=== PATIENT | female | born 1995 | race Caucasian/White ===

== ENCOUNTER 2017-02-23 14:36 | Outpatient (CLI) | payer MEDICAID ==
[~2017-02-23] VITALS: Ht 167.6 cm; Wt 106.4 kg
[2017-02-23 15:08] VITALS: BP 125/65
[2017-02-23] MEDS ORDERED: PREN1TAB69 PO (16:43)
== END 2017-02-23 17:55 | disposition home or self-care (01) ==
LOC: LDOP 14:36
PROVIDERS: ATTEND Obstetrics & Gynecology
DX: O26.893 Other specified pregnancy related conditions, third trimester (principal); R10.9 Unspecified abdominal pain; Z3A.29 29 weeks gestation of pregnancy
CPT/HCPCS: 59025; 81003; 99201; G0463

== ENCOUNTER 2017-04-30 16:36 | Inpatient (IN) | payer MEDICAID ==
[~2017-04-30] VITALS: Ht 170.2 cm; Wt 107.3 kg
[~2017-04-30 16:36] MED LIST: PREN1TAB69 PO
[2017-04-30] MEDS ORDERED: D5%-LACTATED RINGERS 1,000 ML IV SCH (17:09)
[2017-04-30] MEDS ORDERED: OXYTOCIN 30U/ 0.9% NaCL 500ML 500 ML IV ONE (17:09)
[2017-04-30] MEDS ORDERED: OXYTOCIN 30U/ 0.9% NaCL 500ML 500 ML IV PRN (17:09)
[2017-04-30] MEDS ORDERED: NEWBORN KIT ONE (17:09)
[2017-04-30] MEDS ORDERED: LABETALOL 100 MG TABLET ONE (17:14)
[2017-04-30] MEDS ORDERED: MAGNESIUM SULF. PMX 20GM/500ML 500 ML IV PRN (17:24)
[2017-04-30] MEDS ORDERED: LACTATED RINGERS 1,000 ML IV PRN (17:24)
[2017-04-30] MEDS ORDERED: MAGNESIUM SULFATE PMX 4GM/100M 100 ML IVPB ONE (17:30)
[2017-04-30] MEDS ORDERED: CALCIUM CARBONATE 500 MG TAB.CHEW PO PRN (17:30)
[2017-04-30] MEDS ORDERED: CALCIUM GLUCONATE 0.46MEQ/1ML IVPush ONE (17:30)
[2017-04-30] MEDS ORDERED: SODIUM CITRATE/CITRIC ACID 30 ML UDC PO PRN (17:30)
[2017-04-30] MEDS ORDERED: ONDANSETRON 2MG/ML, 2ML IVPush PRN (17:30)
[2017-04-30] MEDS ORDERED: LABETALOL 200 MG TABLET PO ONE (17:30)
[2017-04-30] MEDS ORDERED: FENTANYL PF 100 MCG/2ML IV PRN (17:30)
[2017-04-30] MEDS ORDERED: MISOPROSTOL 25 MCG TABLET VG PRN (17:30)
[2017-04-30] MEDS: LACTATED RINGERS 1,000 ML IV SCH (17:32)
[2017-04-30 17:39] LABS: HEMATOCRIT 40.2 % (34.6-47.8); HEMOGLOBIN 13.5 g/dL (11.7-16.4); WHITE BLOOD COUNT 11.2 x10^3/uL (4.5-13.2)
[2017-04-30 17:41] VITALS: BP 165/88
[2017-04-30 17:52] LABS: BLOOD UREA NITROGEN 8 mg/dL (7-18)
[2017-04-30 17:55] LABS: ASPARTATE AMINO TRANSFERASE 16 U/L (15-37); LACTATE DEHYDROGENASE 160 U/L (84-246)
[2017-04-30] MEDS ORDERED: MISOPROSTOL 25 MCG TABLET ONE (18:16)
[2017-04-30] MEDS ORDERED: MISOPROSTOL 200 MCG TABLET ONE (18:16)
[2017-04-30] MEDS ORDERED: OXYTOCIN 30U/ 0.9% NaCL 500ML 500 ML ONE (18:17)
[2017-04-30] MEDS ORDERED: LIDOCAINE 1%, 20ML ONE (18:19)
[2017-05-01] MEDS ORDERED: MISOPROSTOL 25 MCG TABLET ONE (02:52)
[2017-05-01] MEDS: LACTATED RINGERS 1,000 ML IV SCH ×2 (08:15→16:08)
[2017-05-02] MEDS: LACTATED RINGERS 1,000 ML IV SCH ×4 (08:52→23:25)
[2017-05-02] MEDS ORDERED: OXYTOCIN 30U/ 0.9% NaCL 500ML 500 ML IV PRN (13:00)
[2017-05-02] MEDS ORDERED: D5%-LACTATED RINGERS 1,000 ML IV SCH (21:00)
[2017-05-02] MEDS ORDERED: FENTANYL PF 100 MCG/2ML ONE ×2 (21:52→23:22)
[2017-05-02] MEDS: FENTANYL PF 100 MCG/2ML IVPush PRN ×2 (21:58→23:25)
[2017-05-03] MEDS ORDERED: FENTANYL PF 100 MCG/2ML ONE ×2 (00:30→00:35)
[2017-05-03] MEDS ORDERED: FENTANYL/BUPIV./NS/PF 250 ML EPIDCONT ONE ×2 (00:30→00:35)
[2017-05-03] MEDS ORDERED: BUPIVACAINE 0.25% ONE ×2 (00:30→00:35)
[2017-05-03] MEDS ORDERED: LIDOCAINE/PF 1.5%-EPI 1:200K, 30ML ONE (00:35)
[2017-05-03] MEDS ORDERED: FENTANYL/BUPIV./NS/PF 250 ML EPIDCONT SCH (01:02)
[2017-05-03] MEDS ORDERED: LACTATED RINGERS 1,000 ML IV SCH (01:02)
[2017-05-03] MEDS: LACTATED RINGERS 1,000 ML IV SCH (01:09)
[2017-05-03] MEDS ORDERED: EPHEDRINE 50 MG/ML, 1ML IVPush PRN (01:30)
[2017-05-03] MEDS ORDERED: ONDANSETRON 2MG/ML, 2ML IVPush PRN (01:30)
[2017-05-03] MEDS ORDERED: LACTATED RINGERS 1,000 ML IVBOLUS PRN (01:30)
[2017-05-03] MEDS: OXYTOCIN 30U/ 0.9% NaCL 500ML 500 ML IV SCH ×2 (03:29→13:29)
[2017-05-03] MEDS ORDERED: DOCUSATE 100 MG CAPSULE PO PRN (03:30)
[2017-05-03] MEDS ORDERED: ACETAMINOPHEN 325 MG TABLET PO PRN (03:30)
[2017-05-03] MEDS ORDERED: ONDANSETRON 2MG/ML, 2ML IV PRN (03:30)
[2017-05-03] MEDS ORDERED: MISOPROSTOL 200 MCG TABLET PR PRN (03:30)
[2017-05-03] MEDS ORDERED: OXYcodone/APAP 5/325MG TABLET PO PRN ×2 (03:30)
[2017-05-03] MEDS ORDERED: METOCLOPRAMIDE 5 MG/ML, 2ML IV PRN (03:30)
[2017-05-03] MEDS ORDERED: IBUPROFEN 600 MG TABLET PO PRN (03:30)
[2017-05-03 05:15] VITALS: BP 135/76
[2017-05-03 08:01] VITALS: BP 124/84
[2017-05-03] MEDS: PRENATAL VIT/IRON/FA 1 EACH TABLET PO SCH (09:00)
[2017-05-03 12:00] VITALS: BP 141/83
[2017-05-03 12:08] LABS: HEMATOCRIT 35.1 % (34.6-47.8); HEMOGLOBIN 11.8 g/dL (11.7-16.4); WHITE BLOOD COUNT 13.5 x10^3/uL (4.5-13.2)
[2017-05-03 12:20] VITALS: BP 135/88
[2017-05-03 16:10] VITALS: BP 138/86
[2017-05-03 21:03] VITALS: BP 139/81
[2017-05-04 00:35] VITALS: BP 135/88
[2017-05-04 07:40] VITALS: BP 131/79
[2017-05-04] MEDS: PRENATAL VIT/IRON/FA 1 EACH TABLET PO SCH (08:05)
[2017-05-04 20:45] VITALS: BP 138/87
[2017-05-05 07:30] VITALS: BP 131/83
[2017-05-05] MEDS: PRENATAL VIT/IRON/FA 1 EACH TABLET PO SCH (09:00)
[2017-05-05] MEDS ORDERED: IBUP-1222 PO (09:28)
[2017-05-05] MEDS ORDERED: DOCU-131 PO (09:29)
[2017-05-05] MEDS ORDERED: HYDR1TAB12 PO (09:29)
== END 2017-05-05 14:40 | disposition home or self-care (01) | DRG 775 ==
LOC: EDIP 16:36 → LDIP 16:46 → 2NW 05-03 05:03
PROVIDERS: ADMIT Obstetrics & Gynecology; ATTEND Obstetrics & Gynecology
PROC: 10E0XZZ Delivery of Products of Conception, External Approach (ICD-10-PCS; principal; 2017-05-03)
PROC: 0KQM0ZZ Repair Perineum Muscle, Open Approach (ICD-10-PCS; 2017-05-03)
PROC: 10907ZC Drainage of Amniotic Fluid, Therapeutic from Products of Conception, Via Natural or Artificial Opening (ICD-10-PCS; 2017-05-03)
PROC: 3E033VJ Introduction of Other Hormone into Peripheral Vein, Percutaneous Approach (ICD-10-PCS; 2017-05-03)
PROC: 3E0S3CZ (ICD-10-PCS; 2017-05-03)
PROC: 00HU33Z Insertion of Infusion Device into Spinal Canal, Percutaneous Approach (ICD-10-PCS; 2017-05-03)
DX: O24.424 Gestational diabetes mellitus in childbirth, insulin controlled (principal); O69.81X0 Labor and delivery complicated by cord around neck, without compression, not applicable or unspecified; Z83.3 Family history of diabetes mellitus; Z37.0 Single live birth; O13.4 Gestational [pregnancy-induced] hypertension without significant proteinuria, complicating childbirth; Z3A.37 37 weeks gestation of pregnancy; O70.1 Second degree perineal laceration during delivery; O14.94 Unspecified pre-eclampsia, complicating childbirth
CPT/HCPCS: 36415; 80053; 81001; 82570; 82962; 83615; 83735; 84156; 84550; 85025; 86850; 86900; J0610; J3010; J3490; J2590; J7120; J7121